=== PATIENT | female | born 1935 | race Caucasian/White ===

== ENCOUNTER 2017-08-24 11:26 | Outpatient (CLI) | payer MEDICARE, OTHER ==
[2017-08-24 11:39] LABS: BASOPHILS % 0.8 (0.0-1.5); EOSINOPHILS % 4.2 % (0.0-6.8); MEAN CORPUSCULAR HEMOGLOBIN 30.1 pg (28.0-34.0); MEAN CORPUSCULAR VOLUME 95.3 fl (80.0-100.0); MONOCYTES % 4.2 % (0.0-11.0); NEUTROPHILS # 5.8 # k/uL (1.4-7.7)
[2017-08-24 12:11] LABS: eGFR (African) > 60; eGFR (Non-African) > 60
== END 2017-08-24 12:17 ==
LOC: LAB 11:26
PROVIDERS: ATTEND Family Medicine
DX: Z51.81 Encounter for therapeutic drug level monitoring (principal); E78.5 Hyperlipidemia, unspecified
CPT/HCPCS: 36415; 80053; 80061; 85025

== ENCOUNTER 2017-11-24 12:07 | Outpatient (CLI) | payer MEDICARE, OTHER ==
[2017-11-24 12:40] LABS: BASOPHILS % 0.8 (0.0-1.5); EOSINOPHILS % 2.7 % (0.0-6.8); MEAN CORPUSCULAR HEMOGLOBIN 31.2 pg (28.0-34.0); MEAN CORPUSCULAR VOLUME 97.6 fl (80.0-100.0); MONOCYTES % 5.2 % (0.0-11.0); NEUTROPHILS # 5.6 # k/uL (1.4-7.7)
[2017-11-24 13:00] LABS: eGFR (African) > 60; eGFR (Non-African) > 60
== END 2017-11-24 12:10 ==
LOC: LAB 12:07
PROVIDERS: ATTEND Family Medicine
DX: I10 Essential (primary) hypertension (principal)
CPT/HCPCS: 80053; 85025

== ENCOUNTER 2017-12-25 12:03 | Outpatient (CLI) | payer MEDICARE, OTHER | END 2017-12-25 12:04 | LOC: CARD 12:03 | PROVIDERS: ATTEND Internal Medicine Cardiovascular Disease | DX: R01.1 Cardiac murmur, unspecified (principal) ==

== ENCOUNTER 2018-02-12 13:29 | Outpatient (CLI) | payer MEDICARE, OTHER | END 2018-02-12 13:30 | LOC: CARD 13:29 | PROVIDERS: ATTEND Internal Medicine Cardiovascular Disease | DX: I34.1 Nonrheumatic mitral (valve) prolapse (principal); R09.89 Other specified symptoms and signs involving the circulatory and respiratory systems; Z86.79 Personal history of other diseases of the circulatory system; I10 Essential (primary) hypertension; E78.5 Hyperlipidemia, unspecified | CPT/HCPCS: G0463 ==

== ENCOUNTER 2018-03-13 09:46 | Outpatient (CLI) | payer MEDICARE, OTHER ==
--- NOTE | 2018-03-13 16:48 | Diagnostic Imaging Report ---
HARRY LOVELL [facility] [address] [facility] [address] [address] Report Submission Date: Mar 13, 2018 10:39:52 AM CDT Patient Study Name: ELEN KELSEY Date: Mar 13, 2018 10:12:11 AM CDT Modality Type: DX Gender: F Description: CHEST : 31 Institution: [facility] Physician: HARRY LOVELL Examination: PA and lateral chest. History: CXR, PRODUCTIVE COUGH X2-3 WEEKS (Hx) Comparison exam: None provided. Findings: PA lateral chest demonstrate a normal cardiac and mediastinal silhouette. Mildly tortuous aorta with vascular calcifications involving the aortic arch. Mild parenchymal haziness right hilum. No peripheral consolidation. No blunting of the costophrenic margins. Osseous structures are appropriate for age. Impression: Mild right hilar parenchymal fullness. No peripheral consolidation or effusion. Electronically signed on Mar 13, 2018 10:39:52 AM CDT by: Ovidio CHAPA
== END 2018-03-13 09:47 ==
LOC: RAD 09:46
PROVIDERS: ATTEND Family Medicine
DX: R05 Cough (principal)
CPT/HCPCS: 71046

== ENCOUNTER 2018-04-09 09:49 | Outpatient (CLI) | payer MEDICARE, OTHER | END 2018-04-09 09:52 | LOC: LAB 09:49 | PROVIDERS: ATTEND Family Medicine | DX: R63.4 Abnormal weight loss (principal) | CPT/HCPCS: 36415; 84443 ==

== ENCOUNTER 2018-05-07 11:14 | Outpatient (CLI) | payer MEDICARE, OTHER | END 2018-05-07 11:15 | LOC: CARD 11:14 | PROVIDERS: ATTEND Internal Medicine Cardiovascular Disease | DX: I34.1 Nonrheumatic mitral (valve) prolapse (principal); R05 Cough; I25.10 Atherosclerotic heart disease of native coronary artery without angina pectoris; I70.8 Atherosclerosis of other arteries; I10 Essential (primary) hypertension; E78.5 Hyperlipidemia, unspecified | CPT/HCPCS: G0463 ==

== ENCOUNTER 2018-08-26 10:39 | Outpatient (CLI) | payer MEDICARE, OTHER ==
[2018-08-26 12:20] LABS: BASOPHILS % 0.5 (0.0-1.5); EOSINOPHILS % 3.2 % (0.0-6.8)
[2018-08-26 12:21] LABS: NEUTROPHILS # 6.3 # k/uL (1.4-7.7)
[2018-08-26 13:54] LABS: eGFR (Non-African) > 60
== END 2018-08-26 10:40 ==
LOC: LAB 10:39
PROVIDERS: ATTEND Family Medicine
DX: I10 Essential (primary) hypertension (principal); E78.5 Hyperlipidemia, unspecified
CPT/HCPCS: 36415; 80053; 80061; 85025

== ENCOUNTER 2018-09-10 08:49 | Emergency (ER) | payer MEDICARE, OTHER ==
[2018-09-10] MEDS ORDERED: ASPIRIN 81 MG CHEW TAB PO ONE (09:09)
[2018-09-10] MEDS ORDERED: IPRATROPIUM/ALBUTEROL SULFATE 3 ML AMPUL.NEB NEB ONE (09:11)
--- NOTE | 2018-09-10 09:21 | ED Physician Documentation ---
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 Pt presents to the ED via POV c/o cough x 5 days and one episode of chest pain this morning sub xyphoid, 8/10, pain is worse with cough, non radiating. pain is currently 1/10 at rest. denies diaphoresis and nausea/vomiting. pt denies current dyspnea, syncope/near syncope, headache, dizziness, visual disturbances, n/v/d, fever/chills, rash, sick contacts, dysuria, trauma. melena or hematochezia, bleeding or easy bruising, change in bowel or bladder function. anxiety or depression. ROS Negative unless otherwise specified. Record reviewed: pt has seen [facility] april. December 2017 echo: mitral proplapse with mitral regurg. EF 65%. 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 Left 50-79%. pt overdue for 3 month cardiology follow up. Timing: still present Severity: mild - ROS CONST: no problems CVS/RESP: cough. denies: chest pain GI/: none MS/SKIN/LYMPH: none - PAST HX Past History: none, hypertension, other (glaucoma ) Surgeries/Procedures: none Allergies/Adverse Reactions: Allergies Allergy/AdvReac Type Severity Reaction Status Date / Time amoxicillin trihydrate Allergy Intermediate Diarrhea Verified 09/10/18 09:26 [From Augmentin] potassium clavulanate Allergy Intermediate Diarrhea Verified 09/10/18 09:26 [From Augmentin] No Known Drug Allergies Allergy Verified 09/10/18 09:26 Home Medications: Ambulatory Orders Medication Instructions Recorded Acetaminophen [Acetaminophen 8 1,300 mg PO DAILY 09/10/18 Hour] Latanoprost [Xalatan] 1 drop OP HS 09/10/18 - SOCIAL HX Smoking History: quit greater than 1 year (quit 36 years ago ) Alcohol Use: none Drug Use: none - FAMILY HX Family History: No - VITAL SIGNS Vital Signs: Vital Signs Temp Pulse Resp BP Pulse Ox 97.4 F L 92 H 14 163/68 99 09/10/18 08:54 09/10/18 08:54 09/10/18 08:54 09/10/18 08:54 09/10/18 08:54 - REVIEWED ASSESSMENTS Nursing Assessment Reviewed: Yes Vitals Reviewed: Yes Progress - EKG/XRAY/CT EKG: NSR (left axis deviation- interp by me. ) Comments: 0909-Rate 92. normal intervals/QRS. no st elevation/depression. 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 History: Evaluate lung pocne. SHARP MID CHEST PAIN TODAY, CHRONIC COUGH X 10 MONTHS. HX OF HTN, LEAKY HEART VALVE. NON-SMOKER X 36 YEARS. (Hx) Comparison exam: 13 March 2018 Findings: PA and lateral views of the chest demonstrates a normal cardiac and mediastinal silhouette. Tortuous aorta with vascular calcifications. Chronic interstitial changes. No focal infiltrate. No blunting of the costophrenic margins. Osseous structures are appropriate for age. Impression: Chronic interstitial changes. No acute pulmonary process. Electronically signed on Sep 10, 2018 9:47:24 AM SHIP CONSTRUCTION TEACHER by: Ovidio Arita - Orders Orders: ED Orders Category Date Time Status Continuous EKG monitoring Q30M Care 09/10/18 09:10 Ordered Continuous Pulse Oximetry Q30M Care 09/10/18 09:[address] IV Lock 1T Care 09/10/18 09:10 Ordered CHEST 2VIEW [RAD] Stat Exams 09/10/18 Ordered CBC/PLATELET/DIFF Routine Lab 09/10/18 09:10 Ordered CMP Routine Lab 09/10/18 09:10 Ordered TROPONIN I (cTnI) Stat Lab 09/10/18 09:10 Ordered Aspirin Med 09/10/18 09:09 Once 324 mg PO NOW ONE Ipratropium/Albuterol Sulfate [Duoneb] Med 09/10/18 09:11 Once 3 ml NEB NOW ONE EKG WITH COMPARISON Stat Ther 09/10/18 Ordered General Adult Physical Exam - PHYSICAL EXAM GENERAL APPEARANCE: no distress EENT: eye inspection normal, ENT inspection normal, pharynx normal, no signs of dehydration, [place], no nystagmus, TM's nml NECK: normal inspection, thyroid normal RESPIRATORY: no resp distress, chest non-tender CVS: reg rate & rhythm, heart sounds normal, equal pulses, no gallop, PMI nml, no JVD, no friction rub, murmur, other (+ chest wall tenderness Right costal margin 5-7) ABDOMEN: soft, no organomegaly, normal bowel sounds, no distension BACK: normal inspection, no CVA tenderness SKIN: normal color, warm/dry, NR, INT, PAL, DR EXTREMITIES: non-tender, normal range of motion, no evidence of injury, no edema, J, [employer]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 Tessalon Pereles 100 mg Three times a day as needed. Zithromax 250 mg: two tabs day one (given in the emergency dept) once tab per day on days 2-5. keeps working days 6-10. prednisone 5mg taper once daily as directed on label. seek medical care immediately if difficult to wake, difficulty breathing, feeling faint or fainting, increased rash, chest pain, shortness of breath, or fever not controlled by tylenol/motrin or any concern. follow up with primary care next week or before if not improving as expected. Call cardiology at [facility] and set up follow up appointment in the next 30 days. or follow up with dr mcconnell for referral to [facility] if desired. PLEASE UNDERSTAND THAT THIS IS AN EMERGENCY EVALUATION FOR YOUR COMPLAINT AND BY NATURE IS LIMITED AND NOT A SUBSTITUTE FOR ONGOING MEDICAL CARE. EVEN THOUGH TEST RESULTS AND TREATMENT PLAN WERE EXPLAINED THERE MAY BE A NEED FOR ADDITIONAL TESTING TO FULLY DETERMINE THE EXTENT OF YOUR ILLNESS/INJURY/OR CONCERN SO YOU SHOULD CONTACT AND OR ESTABLISH WITH A PRIMARY CARE PROVIDER (OR REFERRAL DOCTOR IF APPLICABLE) FOR AN APPOINTMENT SOON POSSIBLE Condition: Good Disposition: 01 HOME, SELF-CARE Decision to Admit: NO Date of Decison to Admit: 09/10/18 Decision Time: 11:36
[2018-09-10 10:01] LABS: BASOPHILS % 0.6 (0.0-1.5); EOSINOPHILS % 3.3 % (0.0-6.8); MEAN CORPUSCULAR HEMOGLOBIN 31.5 pg (28.0-34.0); MONOCYTES % 8.8 % (0.0-11.0)
--- NOTE | 2018-09-10 10:18 | Diagnostic Imaging Report ---
HARLEY LEHMAN [facility] [address] [facility] [address] [address] Report Submission Date: Sep 10, 2018 9:47:24 AM MANAGER CLINICAL Patient Study Name: ELEN KELSEY Date: Sep 10, 2018 9:14:11 AM MANAGER CLINICAL Modality Type: DX Gender: F Description: CHEST : 31 Institution: [facility] Physician: HARLEY LEHMAN Examination: PA and lateral chest. History: Evaluate lung ponce. SHARP MID CHEST PAIN TODAY, CHRONIC COUGH X 10 MONTHS. HX OF HTN, LEAKY HEART VALVE. NON-SMOKER X 36 YEARS. (Hx) Comparison exam: 13 March 2018 Findings: PA and lateral views of the chest demonstrates a normal cardiac and mediastinal silhouette. Tortuous aorta with vascular calcifications. Chronic interstitial changes. No focal infiltrate. No blunting of the costophrenic margins. Osseous structures are appropriate for age. Impression: Chronic interstitial changes. No acute pulmonary process. Electronically signed on Sep 10, 2018 9:47:24 AM MANAGER CLINICAL by: Ovidio CHAPA
[2018-09-10] MEDS ORDERED: AZITHROMYCIN 250 MG TABLET PO ONE (10:53)
[2018-09-10 11:31] LABS: eGFR (Non-African) > 60
[2018-09-10 11:45] VITALS: BP 150/52
== END 2018-09-10 11:53 | disposition home or self-care (01) ==
LOC: ED 08:49
DX: J40 Bronchitis, not specified as acute or chronic (principal)
CPT/HCPCS: 36415; 71046; 80053; 84484; 85025; 94640; 94760; 99284; 99285; S1016